=== PATIENT | female | born 1975 | race American Indian/Alaskan Native ===

== ENCOUNTER 2021-09-06 03:02 | Emergency (ER) | payer BC, OTHER ==
[~2021-09-06] VITALS: Ht 175.3 cm; Wt 94.0 kg
[~2021-09-06 03:02] MED LIST: IBUPROFEN800 MG PO; MIRENA1 EACH IY; OMEPRAZOLE20 MG PO; VITAMIN D250000 UNIT PO
[2021-09-06] MEDS ORDERED: ONDANSETRON ODT8 MG PO (04:52)
[2021-09-06] MEDS ORDERED: HYDROCODON-ACE1 EA10 PO (04:52)
[2021-09-06] MEDS ORDERED: METFORMIN HCL500 M3 PO (04:53)
== END 2021-09-06 05:12 | disposition home or self-care (01) ==
LOC: ED 03:02
DX: K80.50 Calculus of bile duct without cholangitis or cholecystitis without obstruction (principal); E11.9 Type 2 diabetes mellitus without complications; K21.9 Gastro-esophageal reflux disease without esophagitis; Z87.891 Personal history of nicotine dependence; Z79.899 Other long term (current) drug therapy
CPT/HCPCS: 36415; 80053; 83690; 85025; 96374; 96375; 99284-25; A9270; J1170; J2270; J2405; J7030

== ENCOUNTER 2025-04-06 06:20 | Day surgery (SDC) | payer BC, OTHER ==
[~2025-04-06] VITALS: Ht 175.3 cm; Wt 75.0 kg
[~2025-04-06 06:20] MED LIST changes: +ACYCLOVIR800 MG PO; +ADDERALL 20 MG20 MG PO; +HYDROCODON-ACE1 EA10 PO; +LACTATED RINGER'S 1,000 ML IV SCH; +METFORMIN HCL500 M3 PO; +MORPHINE SULFATE 4 MG/ML VIAL IV PRN; +ONDANSETRON ODT8 MG PO; +OXYCODONE/APAP 5/325 TAB PO PRN; +OZEMPIC0.25 MG/02 SUB-Q; +PHENAZOPYRIDINE HCL 100 MG TAB PO PRN; +PREDNISONE20 MG; +VITAMIN D325 MC2
[2025-04-06 06:37] VITALS: BP 113/74
[2025-04-06] MEDS ORDERED: VITAMIN B12500 MCG PO (06:40)
[2025-04-06] MEDS ORDERED: CEFAZOLIN SODIUM 2 GM in SODIUM CHLORIDE 0.9% 100 ML IV SCH (07:00)
[2025-04-06] MEDS ORDERED: IBLOOD GLUCOSE TEST STRIP 1 EA TEST VI PRN (07:00)
[2025-04-06] MEDS ORDERED: LIDOCAINE HCL 1% 5 ML SDV INJ ONE (07:00)
[2025-04-06] MEDS ORDERED: LIDOCAINE HCL 2% 5 ML SDV ONE (07:59)
[2025-04-06] MEDS ORDERED: KETOROLAC TROMETHAMINE 30 MG/ML VIAL ONE (08:01)
--- NOTE | 2025-04-06 09:42 | NUR ---
04/06/25 0942 Brittni Ross 0932: PT ARRIVED TO PACU VIA STRETCHER. PT NON AROUSBALE AT THIS TIME. PT ON 6L VIA MASK. 0942: PT AROUSABLE AND TITRATED TO RA AT THIS TIME.
[2025-04-06 09:46] VITALS: BP 100/71
== END 2025-04-06 10:15 | disposition home or self-care (01) ==
LOC: OPS 06:20 → DS 06:20 → OPS 07:30 → DS 07:30 → OPS 08:45
PROVIDERS: ATTEND Urology
PROC: 0TVD3ZZ Restriction of Urethra, Percutaneous Approach (ICD-10-PCS; principal; 2025-04-06 08:45)
DX: N39.3 Stress incontinence (female) (male) (principal); E11.9 Type 2 diabetes mellitus without complications; E78.1 Pure hyperglyceridemia; K21.9 Gastro-esophageal reflux disease without esophagitis; Z87.891 Personal history of nicotine dependence; Z79.899 Other long term (current) drug therapy
CPT/HCPCS: 00910; 84703; J0688; J1885; J2003; J2405; J2704; J7121; L8606